=== PATIENT | male | born 1950 | race Caucasian/White ===

== ENCOUNTER 2021-01-15 15:45 | Emergency (ER) | payer MEDICARE, BC ==
[2021-01-15 16:29] VITALS: BP 148/90; PULSE 76
--- NOTE | 2021-01-15 19:27 | EDM.PDOC ---
ED HPI GENERAL MEDICAL PROBLEM - General Chief Complaint: Back Pain or Injury Stated Complaint: BACK PAIN Time Seen by Provider: 01/15/21 19:21 - History of Present Illness INITIAL COMMENTS - FREE TEXT/NARRATIVE: Very pleasant 71-year-old male comes in complaining of low back pain. He is not exactly sure what he did to his back he slept on it wrong or something but has been really quite bothersome for the last week or so slightly worse on the right compared to the left. He has had no loss of bowel or bladder control no radicular symptoms. At times when the tightness gets bad it will go down into his lower buttocks and posterior thighs. The patient's regular physician at [place] retired the when he was post to see will be able to see him because she is going to full-time walk-in clinic. Patient has not had any burning or frequency with urination no difficulty with bowel movements no abdominal pain. No nerve pain into the legs.. Right Lower Back Pain Score (Numeric/FACES): 2 - Related Data Allergies Allergy/AdvReac Type Severity Reaction Status Date / Time No Known Allergies Allergy Verified 01/15/21 16:29 Home Meds: Home Meds Aspirin [Low Dose Aspirin EC] 81 mg PO DAILY 09/28/15 [History] Hydrocodone/Acetaminophen [[place] 10-325 Tablet] 1 each PO Q4H PRN #30 tablet 09/28/15 [Rx] Moexipril/Hydrochlorothiazide [Moexipril-HCTZ 15-25 MG] 1 tab PO DAILY 09/28/15 [History] Ondansetron [Zofran ODT] 4 mg PO Q8H PRN #12 tab.dis 09/28/15 [Rx] Simvastatin [Zocor] 40 mg PO DAILY 09/28/15 [History] Tamsulosin [Flomax] 0.4 mg PO DAILY 09/28/15 [History] sitaGLIPtin Phos/Metformin HCl [Janumet 50-1,000 MG] 1 tab PO BID 09/28/15 [History] Orphenadrine [Norflex] 100 mg PO BID PRN #16 tab 01/15/21 [Rx] Past Medical History HEENT History: Reports: Cataract Cardiovascular History: Reports: High Cholesterol Endocrine/Metabolic History: Reports: Diabetes, Type II - Past Surgical History HEENT Surgical History: Reports: Cataract Surgery Social & Family History - Tobacco Use Tobacco Use Status *Q: Never Tobacco User - Caffeine Use Caffeine Use: Reports: Coffee - Recreational Drug Use Recreational Drug Use: No ED ROS GENERAL - Review of Systems Review Of Systems: See Below Respiratory: Reports: No Symptoms Cardiovascular: Reports: No Symptoms GI/Abdominal: Reports: No Symptoms Musculoskeletal: Reports: Back Pain Neurological: Reports: No Symptoms ED EXAM, GENERAL - Physical Exam Exam: See Below Exam Limited By: No Limitations General Appearance: Alert, No Apparent Distress Head: Atraumatic, Normocephalic Neck: Normal Inspection, Supple, Non-Tender, Full Range of Motion Respiratory/Chest: No Respiratory Distress, Lungs Clear, Normal Breath Sounds, No Accessory Muscle Use, Chest Non-Tender Cardiovascular: Normal Peripheral Pulses, Regular Rate, Rhythm, No Edema, No Gallop, No JVD, No Murmur, No Rub GI/Abdominal: Normal Bowel Sounds, Soft, Non-Tender, No Organomegaly, No Distention, No Abnormal Bruit, No Mass (Male) Exam: No Hernia, Normal Inspection, Normal Prostate, Circumcised Rectal (Males) Exam: Normal Exam, Normal Rectal Tone, Prostate Normal Course - Vital Signs Last Recorded V/S: Last Vital Signs Temp 36.4 C 01/15/21 16:26 Pulse 76 01/15/21 16:26 Resp 16 01/15/21 16:26 BP 148/90 H 01/15/21 16:26 Pulse Ox 97 01/15/21 16:26 - Re-Assessments/Exams Free Text/Narrative Re-Assessment/Exam: 01/15/21 19:29 Advise the patient use Tylenol up to 1000 mg 4 times a day we will add Norflex and see how he does. Departure - Departure Time of Disposition: 19:29 Disposition: Home, Self-Care 01 Clinical Impression: Back pain - Discharge Information Prescriptions: Orphenadrine [Norflex] 100 mg PO BID PRN #16 tab PRN Reason: Spasms Instructions: Chronic Back Pain, [id number] Referrals: Darling Hanks [employer] [facility] [facility] [Primary Care Provider] - Forms: ED Department Discharge Additional Instructions: Return to the emergency room with any questions problems or worsening symptoms. Use Tylenol 652,000 mg 4 times a day do not exceed 4000 mg in a 24-hour period. Started on Norflex, this is a muscle relaxants, take 1 twice daily in the beginning and then at bedtime when your symptoms start to improve. It is best to allow 12 hours after using this medication before driving or returning to work and use caution the first couple of days until you know how it is going to affect your system. Follow-up in your clinic in 1 week for recheck Sepsis Event Note (ED) - Evaluation Sepsis Screening Result: No Definite Risk
== END 2021-01-15 19:38 | disposition home or self-care (01) ==
LOC: JD.ED 15:45
DX: M54.5 Low back pain (principal); E78.00 Pure hypercholesterolemia, unspecified; E11.9 Type 2 diabetes mellitus without complications; Z79.82 Long term (current) use of aspirin; Z79.899 Other long term (current) drug therapy
CPT/HCPCS: 99283